=== PATIENT | male | born 1990 | race Caucasian/White ===

== ENCOUNTER 2023-02-03 14:48 | Emergency (ER) | payer BC ==
[~2023-02-03] VITALS: Ht 165.1 cm; Wt 90.7 kg
--- NOTE | 2023-02-03 15:15 | NUR ---
PT PU ON BED COMPLAINS OF CONSTIPATION STARTED 6 DAYS AGO. ABDOMINAL PA 01/28, NO VOMITING NO LOSS OF APPETITE. TRIED FLEET ENEMA AND DULOCOLAX SUPP YESTERDAY. TRIED PRUNE JUICE SINCE YESTERDAY AND THIS MORNING. NOT IN CR DISTRESS
[2023-02-03] MEDS ORDERED: MINERAL OIL 133 ML (PYXIS) 1 EA ENEMA RC ONE ×2 (16:00→16:09)
[2023-02-03 16:10] LABS: BASOPHILS # (AUTO) 0.1 K/uL (0.0-0.2); BASOPHILS % (AUTO) 1.8 % (0.0-2.0); EOSINOPHILS % (AUTO) 3.7 % (0.0-6.0); HEMATOCRIT 46 % (39-51); HEMOGLOBIN 15.1 g/dL (13.5-17.5); LYMPHOCYTES # (AUTO) 2.4 K/uL (0.8-4.8); LYMPHOCYTES % (AUTO) 31.7 % (20.0-44.0); MEAN CORPUSCULAR HGB CONC 33 g/dl (31.0-36.0); MEAN CORPUSCULAR VOLUME 87 fL (80-96); MONOCYTES # (AUTO) 0.7 K/uL (0.1-1.30); MONOCYTES % (AUTO) 8.6 % (2.0-12.0); NEUTROPHILS # (AUTO) 4.1 K/uL (1.8-8.9); NEUTROPHILS % (AUTO) 54.2 % (43.0-81.0); PLATELET COUNT (AUTO) 319 K/uL (150-450); WHITE BLOOD COUNT (AUTO) 7.6 K/uL (4.3-11.0)
[2023-02-03 16:59] LABS: BILIRUBIN,DIRECT 0.1 mg/dL (0.0-0.2); BILIRUBIN,TOTAL 0.5 mg/dL (0.2-1.0); CALCIUM, SERUM 9.2 mg/dL (8.5-10.1); CREATININE 0.8 mg/dL (0.6-1.3); POTASSIUM 4.1 mmol/L (3.5-5.1); TOTAL PROTEIN, SERUM 7.7 g/dL (6.4-8.2)
[2023-02-03] MEDS ORDERED: MAGN296S72 PO (17:41)
[2023-02-03 18:13] VITALS: BP 123/80
== END 2023-02-03 18:13 | disposition home or self-care (01) ==
LOC: ER 14:52
DX: K59.00 Constipation, unspecified (principal); Z79.899 Other long term (current) drug therapy
CPT/HCPCS: 36415; 80048-TC; 80076-TC; 83690-TC; 85025-TC